=== PATIENT | female | born 1960 | race Caucasian/White ===

== ENCOUNTER 2018-12-31 11:17 | Emergency (ER) | payer MEDICAID ==
[2018-12-31] MEDS ORDERED: 0.9 % SODIUM CHLORIDE 1,000 ML BAG IV ONE (11:24)
[2018-12-31] MEDS ORDERED: ONDANSETRON HCL IV 4 MG/2 ML VIAL IVP ONE ×2 (11:29→12:49)
[2018-12-31 11:51] LABS: ABSOLUTE NEUTROPHIL COUNT 11.89; BASO % 0.1 % (0-6); EOS % 0.6 % (0-6); GRAN % 80.9 % (47-80); HEMATOCRIT 44.5 % (35.0-47.0); HEMOGLOBIN 14.6 gm/dl (11.6-16.0); LYMPH % 14.2 % (16-45); MEAN CELL VOLUME 88.1 fl (81-97); MEAN CORPUSCULAR HEMOGLOBIN 28.9 pg (27-33); MEAN CORPUSCULAR HGB CONC 32.8 g/dl (32-36); MEAN PLATELET VOLUME 10.7 fl (7.4-10.4); MONO % 4.2 % (0-9); PLATELET COUNT 268 K/uL (130-400); RED BLOOD COUNT 5.05 M/uL (3.80-5.40); RED CELL DISTRIBUTION WIDTH 12.9 % (11.5-14.5); WHITE BLOOD COUNT W/O DIFF 14.7 K/uL (4.2-12.2)
[2018-12-31 11:54] LABS: BLOOD UREA NITROGEN 10 mg/dL (6-20); CREATININE 0.6 mg/dL (0.5-0.9); EST GLOMERULAR FILTRATION RATE > 60 mL/min
[2018-12-31 11:55] LABS: LIPASE 26 U/L (13-60); TOTAL PROTEIN 6.9 g/dL (6.6-8.7)
[2018-12-31 11:57] LABS: GLUCOSE,RANDOM 117 mg/dL (74-109)
[2018-12-31 11:59] LABS: ALT/SGPT 14 U/L (<33)
[2018-12-31 12:00] LABS: ALBUMIN 4.3 g/dL (4.0-5.0); ALKALINE PHOSPHATASE 63 U/L (35-104); AST/SGOT 10 U/L (10.0-35.0)
--- NOTE | 2018-12-31 12:04 | Emergency Department Record ---
History of Present Illness - General Chief Complaint: Abdominal Pain Stated Complaint: ABD PAIN Time Seen by Provider: 12/31/18 11:24 Source: Patient, RN notes reviewed Mode of Arrival: Ambulatory - History of Present Illness Initial Comments: abdominal pain for 3 days Left lower quad and she has a history of diverticulitis one bad episode and some minor ones. No vomiting and diarrhea times 4 in the last 24 hours Onset/Timin -: Days(s) Location: Suprapubic, LLQ Severity scale (1-10): 8 Quality: Sharp Consistency: Intermittent Improves With: Nothing Worsens With: Nothing Associated Symptoms: Diarrhea, Nausea Treatments Prior to Arrival: Prescription analgesics - Related Data Patient : No Previous Rx's Medication Instructions Recorded Ciprofloxacin HCl [Cipro] 500 mg PO Q12HR #20 tablet 12/31/18 Dicyclomine HCl [Bentyl] 10 mg PO Q8H #30 cap 12/31/18 Metronidazole [Flagyl] 500 mg PO Q8H #30 tablet 12/31/18 Ondansetron HCl [Zofran] 4 mg PO Q6HR #14 tablet 12/31/18 Allergies Allergy/AdvReac Type Severity Reaction Status Date / Time No Known Allergies Allergy PT UNSURE Verified 12/31/18 11:30 OF REACTION Travel Screening - Travel/Exposure Within Last 30 Days Have you traveled within the last 30 days?: No - Travel/Exposure Within Last Year Have you traveled outside the [place] in the last year?: No - Additonal Travel Details Have you been exposed to anyone with a communicable illness?: No - Travel Symptoms Symptom Screening: None Review of Systems Reviewed: No additional complaints except as noted below Constitutional: Reports: As per HPI. Denies: Chills, Fever, Malaise, Night sweats, Weakness, Weight change Eyes: Reports: As per HPI. Denies: Eye discharge, Eye pain, Photophobia, Vision change ENT: Reports: As per HPI. Denies: Congestion, Dental pain, Ear pain, Epistaxis, Hearing loss, Throat pain Respiratory: Reports: As per HPI. Denies: Cough, Dyspnea, Hemoptysis, Stridor, Wheezes Cardiovascular: Reports: As per HPI. Denies: Arrhythmia, Chest pain, Dyspnea on exertion, Edema, Murmurs, Orthopnea, Palpitations, Paroxysmal nocturnal dyspnea, Rheumatic Fever, Syncope Endocrine: Reports: As per HPI. Denies: Fatigue, Heat or cold intolerance, Polydipsia, Polyuria Gastrointestinal: Reports: As per HPI, Abdominal pain, Diarrhea, Nausea. Denies: Constipation, Hematemesis, Hematochezia, Melena, Vomiting Genitourinary: Reports: As per HPI. Denies: Abnormal menses, Discharge, Dyspareunia, Dysuria, Frequency, Hematuria, Incontinence, Retention, Urgency Musculoskeletal: Reports: As per HPI. Denies: Arthralgia, Back pain, Gout, Joint swelling, Myalgia, Neck pain Skin: Reports: As per HPI. Denies: Bruising, Change in color, Change in hair/nails, Lesions, Pruritus, Rash Neurological: Reports: As per HPI. Denies: Abnormal gait, Confusion, Headache, Numbness, Paresthesias, Seizure, Tingling, Tremors, Vertigo, Weakness Psychiatric: Reports: As per HPI. Denies: Anxiety, Auditory hallucinations, Depression, Homicidal thoughts, Suicidal thoughts, Visual hallucinations Hematological/Lymphatic: Reports: As per HPI. Denies: Anemia, Blood Clots, Easy bleeding, Easy bruising, Swollen glands Past Medical History - SOCIAL HISTORY Smoking Status: Never smoker Alcohol Use: Rare Drug Use: None - RESPIRATORY Hx Respiratory Disorders: No - CARDIOVASCULAR Hx Cardio Disorders: Yes Hx Hypertension: Yes - NEURO Hx Neuro Disorders: Yes Comment:: Trigiminal neuragial - GI Hx GI Disorders: Yes Hx Diverticulitis: Yes - Hx Genitourinary Disorders: No - ENDOCRINE Hx Endocrine Disorders: No - MUSCULOSKELETAL Hx Musculoskeletal Disorders: No - PSYCH Hx Psych Problems: Yes Hx Anxiety: Yes Hx Depression: Yes - HEMATOLOGY/ONCOLOGY Hx Hematology/Oncology Disorders: No Family Medical History Any Significant Family History?: Yes Hx Cancer: Father Hx Heart Disease: Mother, Brother/Sister, Grandparents Physical Exam - General General Appearance: Alert, Oriented x3, Cooperative, Mild distress - Head Head exam: Normal inspection - Eye Eye exam: Normal appearance, PERRL Pupils: Normal accommodation - ENT ENT exam: Normal exam, Mucous membranes moist, Normal external ear exam, Normal orophraynx, TM's normal bilaterally Ear exam: Normal external inspection. negative: External canal tenderness Nasal Exam: Normal inspection. negative: Discharge, Sinus tenderness Mouth exam: Normal external inspection, Tongue normal Teeth exam: Normal inspection. negative: Dental caries Throat exam: Normal inspection. negative: Tonsillar erythema, Tonsillar exudate - Neck Neck exam: Normal inspection, Full ROM. negative: Tenderness - Respiratory Respiratory exam: Normal lung sounds bilaterally. negative: Respiratory distress - Cardiovascular Cardiovascular Exam: Regular rate, Normal rhythm, Normal heart sounds - GI/Abdominal GI/Abdominal exam: Soft, Normal bowel sounds, Tenderness (left lower quad pain) - Rectal Rectal exam: Deferred - exam: Deferred - Extremities Extremities exam: Normal inspection, Full ROM, Normal capillary refill. negative: Tenderness - Back Back exam: Reports: Normal inspection, Full ROM. Denies: Muscle spasm, Rash noted, Tenderness - Neurological Neurological exam: Alert, Normal gait, Oriented X3, Reflexes normal - Psychiatric Psychiatric exam: Normal affect, Normal mood - Skin Skin exam: Dry, Intact, Normal color, Warm Course Vital Signs 12/31/18 11:24 Temperature 98.3 F Pulse Rate [ 91 H Pulse Ox Probe] Respiratory 20 Rate Blood Pressure 121/77 [Left Arm] Pulse Ox 97 - Reevaluation(s) Reevaluation #1: discussed inpatient vs outpatient therapy with patient 12/31/18 12:51 12/31/18 13:33 feeling better and she would like to try outpatient therapy Medical Decision Making - Data Complexity MDM Data: Labs Ordered and/or Reviewed (wbc 14,700), X-Ray Ordered and/or Reviewed (diverticulosis and diverticulitis and thickened sigmoid colon) - Lab Data Result diagrams: 12/31/18 11:35 12/31/18 11:35 Lab Results 12/31/18 Range/Units 11:35 WBC 14.7 H (4.2-12.2) K/uL RBC 5.05 (3.80-5.40) M/uL Hgb 14.6 (11.6-16.0) gm/dl Hct 44.5 (35.0-47.0) % MCV 88.1 (81-97) fl MCH 28.9 (27-33) pg MCHC 32.8 (32-36) g/dl RDW 12.9 (11.5-14.5) % Plt Count 268 (130-400) K/uL MPV 10.7 H (7.4-10.4) fl Gran % 80.9 H (47-80) % Lymphocytes % 14.2 L (16-45) % Monocytes % 4.2 (0-9) % Eosinophils % 0.6 (0-6) % Basophils % 0.1 (0-6) % Absolute Neutrophils 11.89 Disposition Clinical Impression: Diverticulitis Pain in the abdomen Qualifiers: Abdominal location: left lower quadrant Qualified Code(s): R10.32 - Left lower quadrant pain Disposition: Home, Self-Care Condition: (1) Good Instructions: Diverticulitis (ED), Diverticulitis Diet (ED) Additional Instructions: follow up with family Dr in one week use home tramadol three times a day use bentyl three times aday zofran for nausea no alcohol with her antibiotics clear liquid diet today and than low fiber diet Prescriptions: Ondansetron HCl [Zofran] 4 mg PO Q6HR #14 tablet Ciprofloxacin HCl [Cipro] 500 mg PO Q12HR #20 tablet Dicyclomine HCl [Bentyl] 10 mg PO Q8H #30 cap Metronidazole [Flagyl] 500 mg PO Q8H #30 tablet Forms: Patient Portal Access Time of Disposition: 13:39 Quality - Quality Measures Quality Measures: N/A - Blood Pressure Screening Does Patient Have Any of the Following: No Blood Pressure Classification: Pre-Hypertensive BP Reading Systolic Measurement: 121 Diastolic Measurement: 77 Screening for High Blood Pressure: < Pre-Hypertensive BP, F/U Documented > [G8950] Pre-Hypertensive Follow-up Interventions: Referral to alternative/primary care provider.
[2018-12-31 12:05] LABS: BILIRUBIN,DIRECT < 0.2 mg/dL (0-0.3)
[2018-12-31] MEDS ORDERED: METRONIDAZOLE IVPB 500 MG/100 ML BAG IVPB ONE (12:47)
[2018-12-31] MEDS ORDERED: HYDROMORPHONE HCL 2 MG/ML VIAL IVP ONE (12:49)
[2018-12-31 13:26] LABS: URINE APPEARANCE CLEAR; URINE BILIRUBIN NEGATIVE (NEGATIVE); URINE BLOOD NEGATIVE (NEGATIVE); URINE COLOR YELLOW; URINE GLUCOSE (UA) NEGATIVE (NEGATIVE); URINE KETONE NEGATIVE (NEGATIVE); URINE LEUKOCYTE ESTERASE TRACE (NEGATIVE); URINE NITRITE NEGATIVE (NEGATIVE); URINE PROTEIN NEGATIVE (NEGATIVE); URINE UROBILINOGEN 0.2 E.U./dL (0.20 - 1.00)
[2018-12-31] MEDS ORDERED: CIPROFLOXACIN HCL 500 MG TABLET PO ONE (13:31)
[2018-12-31 13:40] LABS: URINE BACTERIA NONE SEEN; URINE EPITHELIAL CELLS 0 - 2 (FEW); URINE RBC NONE SEEN (NONE SEEN); URINE WBC NONE SEEN (0-2/hpf)
--- NOTE | 2019-01-02 09:44 | CT SCAN REPORT ---
EXAM: CT OF THE ABDOMEN AND PELVIS WITHOUT CONTRAST HISTORY: LEFT LOWER QUADRANT PAIN AND DIARRHEA FOR THREE DAYS. TECHNIQUE: Helical CT examination of the abdomen and pelvis was performed without oral or intravenous contrast administration. Lack of oral and IV contrast utilization limits evaluation of the bowel and solid viscera respectively. Comparison: None. FINDINGS: There is mild dependent atelectasis within each lung base. The visualized lung bases are otherwise clear. No pleural or pericardial effusion. There is elevation of the right hemidiaphragm. There is likely mild diffuse hepatic steatosis with small area of sparing adjacent to the gallbladder fossa and within the central medial segment of the left liver lobe. No suspicious focal lesion within the liver, spleen, pancreas, nor adrenal glands. The gallbladder is unremarkable and no biliary ductal dilatation is seen. The kidneys are normal in size, position, and are smoothly marginated. There is a 2 mm nonobstructing calculus in the lower pole of the left kidney. No other nephrolithiasis nor renal mass. No obstructive uropathy. No intraabdominal nor retroperitoneal lymphadenopathy is seen. There is diffuse atherosclerosis without aneurysmal dilatation of the abdominal aorta nor iliac arteries. No pelvic mass nor adenopathy. The uterus is surgically absent. No focal urinary bladder wall abnormality is seen though evaluation is limited by lack of distention. There are diverticula scattered within the left colon most pronounced in the sigmoid region where it is mild to moderate. There is a segment of wall thickening of the sigmoid colon with adjacent fat stranding consistent with diverticulitis/colitis. There is an associated trace volume of free fluid in the dependent pelvis. No definite extraluminal air. No evidence of abscess. No evidence of bowel obstruction. The appendix is visualized, deep within the right hemipelvis. It does not appear grossly thickened with gas in the lumina at the level of the tip. It is located within trace fluid. The abdominal wall is unremarkable. No suspicious lytic or blastic bone lesion. There are degenerative changes scattered throughout the visualized spine and sacroiliac joints. There is a subtle focus of lucency centrally within the L2 vertebral body measuring 5-6 mm. Focal marrow fat or hemangioma is favored over neoplasm. IMPRESSION: 1. DIVERTICULOSIS OF THE LEFT COLON. FINDINGS CONSISTENT WITH DISTAL SIGMOID DIVERTICULITIS VERSUS COLITIS, DETAILED ABOVE. 2. LEFT NEPHROLITHIASIS. 3. MINOR HEPATIC STEATOSIS. 4. NOT MENTIONED ABOVE IS MINOR SOFT TISSUE DENSITY PROMINENCE IN THE ANAL/PERIANAL REGION. THIS IS NONSPECIFIC. CORRELATION WITH PHYSICAL EXAMINATION IS RECOMMENDED. JOB NUMBER: [id number] [facility]
== END 2018-12-31 14:35 | disposition home or self-care (01) ==
LOC: ER 11:17
DX: K57.32 Diverticulitis of large intestine without perforation or abscess without bleeding (principal); K57.30 Diverticulosis of large intestine without perforation or abscess without bleeding; R10.32 Left lower quadrant pain; I10 Essential (primary) hypertension
CPT/HCPCS: 74176; 80048; 80076; 81001; 83690; 85025; 96365; 96375; 96376; 99284; J2405; J7030

== ENCOUNTER 2019-06-29 20:09 | Emergency (ER) | payer MEDICAID ==
--- NOTE | 2019-06-29 20:16 | Emergency Department Record ---
History of Present Illness - General Stated Complaint: CHEST PRESSURE Time Seen by Provider: 06/29/19 20:09 Source: Patient Mode of Arrival: Ambulatory Limitations: No limitations - History of Present Illness Initial Comments: 58 yo female presents from the [facility]. She reports that she has not felt well since this morning. She has had a feeling of shortness of breath and discomfort in her chest. The symptoms have been coming and going since this morning. She feels somewhat fatigued as well. The discomfort is a vague ache in the mid chest. She does feel like exertion makes it more noticeable. She has not had her HTN medication for about 2 weeks. She is on Lisinopril. No leg pain or swelling. She does not have known CAD. She does have HTN, elevated cholesterol, former smoker quit 8 years ago, and a family history of a sister and mother with CAD AMI in their 50's. Her brother has had CABG as well. Her last stress test was several years ago ECHO report from 05/22/2018 was reviewed. No significant abnormality.EF 55%, Mitral and Aortic valve mild sclerosis without stenosis. Normal pulmonary arterial pressure. Normal a changes sizes. MD Complaint: Chest pain -: Days(s) (1) Onset: Awoke with symptoms, During exertion Pain Location: Substernal Pain Radiation: Back (Mild radiation at times to the back) Severity: Moderate Quality: Aching, Heaviness Consistency: Intermittent Improves With: Rest Worsens With: Exertion Context: Other (Out of HTN medication 2 weeks) Anginal Symptoms: Dyspnea Treatments Prior to Arrival: None - Related Data Allergies Allergy/AdvReac Type Severity Reaction Status Date / Time No Known Allergies Allergy PT UNSURE Verified 06/29/19 20:59 OF REACTION Review of Systems Constitutional: Denies: Chills, Fever, Malaise, Weakness Eyes: Denies: Eye discharge ENT: Denies: Congestion, Throat pain Respiratory: Reports: Dyspnea. Denies: Cough Cardiovascular: Reports: Chest pain, Dyspnea on exertion. Denies: Edema, Palpitations, Syncope Endocrine: Denies: Fatigue, Polydipsia, Polyuria Gastrointestinal: Denies: Abdominal pain, Diarrhea, Nausea, Vomiting Genitourinary: Denies: Dysuria, Urgency Musculoskeletal: Denies: Arthralgia, Back pain, Myalgia, Neck pain Skin: Denies: Bruising, Change in color, Rash Neurological: Denies: Headache, Weakness Psychiatric: Denies: Anxiety Hematological/Lymphatic: Denies: Easy bleeding, Easy bruising Past Medical History - SOCIAL HISTORY Smoking Status: Never smoker Drug Use: None - RESPIRATORY Hx Respiratory Disorders: No - CARDIOVASCULAR Hx Cardio Disorders: Yes Hx Hypertension: Yes - NEURO Hx Neuro Disorders: Yes Comment:: Trigiminal neuragial - GI Hx GI Disorders: Yes Hx Diverticulitis: Yes - Hx Genitourinary Disorders: No - ENDOCRINE Hx Endocrine Disorders: No - MUSCULOSKELETAL Hx Musculoskeletal Disorders: No - PSYCH Hx Psych Problems: Yes Hx Anxiety: Yes Hx Depression: Yes - HEMATOLOGY/ONCOLOGY Hx Hematology/Oncology Disorders: No Family Medical History Hx Cancer: Father Hx Heart Disease: Mother, Brother/Sister, Grandparents Physical Exam - General General Appearance: Alert, Oriented x3, Cooperative, No acute distress Limitations: No limitations - Head Head exam: Atraumatic, Normal inspection - Eye Eye exam: Normal appearance, PERRL. negative: Conjunctival injection, Scleral icterus - ENT ENT exam: Normal exam, Mucous membranes moist Ear exam: Normal external inspection Nasal Exam: Normal inspection Mouth exam: Normal external inspection - Neck Neck exam: Normal inspection - Respiratory Respiratory exam: Normal lung sounds bilaterally. negative: Accessory muscle use, Chest wall tenderness, Decreased breath sounds, Prolonged expiratory, Respiratory distress, Rhonchi, Stridor, Wheezes - Cardiovascular Cardiovascular Exam: Regular rate, Normal rhythm, Normal heart sounds Peripheral Pulses: 2+: Radial (R), Radial (L) - GI/Abdominal GI/Abdominal exam: Soft. negative: Tenderness - Rectal Rectal exam: Deferred - exam: Deferred - Extremities Extremities exam: Normal inspection. negative: Calf tenderness, Pedal edema, Tenderness - Back Back exam: Denies: CVA tenderness (R), CVA tenderness (L) - Neurological Neurological exam: Alert, Oriented X3 - Psychiatric Psychiatric exam: Normal affect, Normal mood. negative: Agitated, Anxious - Skin Skin exam: Dry, Intact, Normal color, Warm Course - Reevaluation(s) Reevaluation #1: 06/29/19 20:11 EKG #1: 20:10 Rate: 71 Rhythm: sinus [place]: normal Intervals: normal ST segments: normal Prior: None Normal EKG 06/29/19 20:17 Aspirin given 06/29/19 20:52 The labs results were reviewed There are no acute significant abnormalities of the CBC There are no acute significant abnormalities of the CMP 06/29/19 21:15 The Troponin and BNP are normal The CXR report was reviewed. No acute process. 06/29/19 22:17 06/29/19 22:26 The CTA of the chest is negative. No PE, Dissection, or Aneurysm. HEART score is 5 Given her symptoms and risk factors I recommend admission There is no cardiology or testing at [facility] tomorrow I discussed transfer with the patient. She agrees with transfer to [facility]. 06/29/19 22:28 I discussed the case with Dr De La Cruz for transfer and admission to [facility] for further care and testing Medical Decision Making - Lab Data Result diagrams: 06/29/19 20:25 06/29/19 20:25 Disposition Disposition: Transfer Clinical Impression: Chest pain Qualifiers: Chest pain type: unspecified Qualified Code(s): R07.9 - Chest pain, unspecified Disposition: Acute Care Hospital Transfer Transfer To: [facility] Reason For Transfer: Chest pain Accepting Physician: Jono Time Discussed w/Accepting Physician: 22:27 Condition: (2) Stable Time of Disposition: 20:32 Quality - Quality Measures Quality Measures: N/A - Blood Pressure Screening Does Patient Have Any of the Following: Active Dx of HTN Blood Pressure Classification: Hypertensive Reading Systolic Measurement: 153 Diastolic Measurement: 69 Screening for High Blood Pressure: Patient Exclusion, Hx of HTN [G9744]
[2019-06-29] MEDS ORDERED: ASPIRIN 81 MG CHEWABLE TABLET PO ONE (20:26)
[2019-06-29] MEDS ORDERED: NITROGLYCERIN 0.4MG SL TABLET #25 BTL SL ONE (20:26)
[2019-06-29 20:34] LABS: ABSOLUTE NEUTROPHIL COUNT 4.65; BASO % 0.5 % (0-6); EOS % 2.8 % (0-6); GRAN % 58.7 % (47-80); HEMATOCRIT 41.5 % (35.0-47.0); HEMOGLOBIN 13.7 gm/dl (11.6-16.0); MEAN CELL VOLUME 89.8 fl (81-97); MEAN CORPUSCULAR HEMOGLOBIN 29.7 pg (27-33); MEAN PLATELET VOLUME 10.9 fl (7.4-10.4); PLATELET COUNT 237 K/uL (130-400); RED BLOOD COUNT 4.62 M/uL (3.80-5.40); RED CELL DISTRIBUTION WIDTH 13.6 % (11.5-14.5); WHITE BLOOD COUNT W/O DIFF 7.9 K/uL (4.2-12.2)
[2019-06-29 20:48] LABS: BLOOD UREA NITROGEN 9 mg/dL (6-20); CREATININE 0.6 mg/dL (0.5-0.9); EST GLOMERULAR FILTRATION RATE > 60 mL/min; INR 0.9; PARTIAL THROMBOPLASTIN TIME 23.3 SECONDS (24.5-39.1); PROTHROMBIN TIME (PATIENT) 9.5 SECONDS (9.5-12.1); TOTAL PROTEIN 6.6 g/dL (6.6-8.7)
[2019-06-29 20:51] LABS: GLUCOSE,RANDOM 128 mg/dL (74-109)
[2019-06-29 20:53] LABS: ALB/GLOB RATIO 1.9 (1.1-1.8); ALBUMIN 4.3 g/dL (4.0-5.0); ALKALINE PHOSPHATASE 64 U/L (35-104); ALT/SGPT 19 U/L (<33); AST/SGOT 17 U/L (10.0-35.0)
[2019-06-29 20:55] LABS: NTpro B-NATRIURETIC PEPTIDE 78.47 pg/mL (<125)
[2019-06-29] MEDS ORDERED: LISINOPRIL 20 MG TABLET PO ONE (21:03)
[2019-06-29] MEDS ORDERED: MORPHINE SULFATE 5 MG/ML VIAL IVP ONE (21:04)
--- NOTE | 2019-06-29 21:04 | RADIOLOGY REPORT ---
EXAMINATION: Two View Chest Radiographs EXAM DATE: 06/29/2019 8:50 PM TECHNIQUE: Frontal and lateral views INDICATION: chest discomfort, tianna COMPARISON: None ENCOUNTER: Not applicable FINDINGS: Heart and mediastinal structures unremarkable. No pulmonary consolidation or infiltration. No pneumot horax or pleural effusion. IMPRESSION: No acute abnormality Dictated by: Yefri Ramirez MD on 06/29/2019 9:02 PM. .
--- NOTE | 2019-06-29 22:24 | CT ANGIOGRAM REPORT ---
EXAMINATION: CT Angiography of the Thorax EXAM DATE: 06/29/2019 9:56 PM TECHNIQUE: Standard protocol CT angiogram images were obtained through the chest following the admini stration of intravenous contrast. Coronal and sagittal MIP 3-D reformations were performed. IV Contrast: The amount and type of contrast are recorded in the medical record. INDICATION: chest pain to the back. COMPARISON: None ENCOUNTER: Not applicable FINDINGS: Pulmonary Artery: No pulmonary embolism is present. Aorta: No thoracic aortic aneurysm or dissection is present. Right Heart Strain: None. Heart : There is no pericardial effusion. Heather and Mediastinum: No lymphadenopathy. Lung Parenchyma: Normal. Central Airways: Normal. Pleural Effusion: None. Upper Abdomen: Unremarkable. Musculoskeletal and Chest Wall: Unremarkable. IMPRESSION: No CT findings suggestive pulmonary embolism. No infiltrate or effusion Dictated by: Tamara Bassett DO on 06/29/2019 10:18 PM. .
[2019-06-29] MEDS ORDERED: 0.9 % SODIUM CHLORIDE 1000ML 1,000 ML IV ONE (22:45)
== END 2019-06-29 23:33 | disposition short-term general hospital (02) ==
LOC: ER 20:09
DX: R07.2 Precordial pain (principal); R06.00 Dyspnea, unspecified; M54.9 Dorsalgia, unspecified; R53.83 Other fatigue; E78.00 Pure hypercholesterolemia, unspecified; I10 Essential (primary) hypertension; Z87.891 Personal history of nicotine dependence; Z91.14 Patient's other noncompliance with medication regimen
CPT/HCPCS: 99285 ×2; 96374; 85025; 85730; 85610; 80053; 84484; 83880; 71046; 71275; 93005; Q9967; 93010